=== PATIENT | male | born 1960 | race Caucasian/White ===

== ENCOUNTER 2019-02-25 21:30 | Observation (INO) | payer BC, OTHER ==
--- NOTE | 2019-02-25 22:07 | XR ---
EXAMINATION TYPE: XR shoulder complete LT DATE OF EXAM: 02/25/2019 COMPARISON: NONE HISTORY: Pain TECHNIQUE: 3 views FINDINGS: There is anterior dislocation of the glenohumeral joint. I see no definite fracture line. T he scapula is intact. IMPRESSION: Anterior dislocation of the shoulder joint. No fracture seen.
[2019-02-25] MEDS ORDERED: PROPOFOL 10 MG/ML 20 ML VIAL IV ONE (22:32)
[2019-02-25] MEDS ORDERED: SODIUM CHLORIDE 0.9% 1,000 ML IV STA (22:32)
--- NOTE | 2019-02-25 22:41 | ED ---
Upper Extremity HPI - General Chief Complaint: Extremity Injury, Upper Stated Complaint: Dislocated shoulder Time Seen by Provider: 02/25/19 22:18 Source: patient, RN notes reviewed, old records reviewed Mode of arrival: wheelchair Limitations: no limitations - History of Present Illness Initial Comments: This is a 5-year-old male here for evaluation of left shoulder injury. Patient was playing hockey with friends and oculi fell landing on his left shoulder complaining of left shoulder pain. History of rotator cuff surgery on his right shoulder and only her left lower pain today. Patient denies any injury from the fall. Denying any other significant injury MD Complaint: Injury to:: left, shoulder -: hour(s) Other Extremity Injury: Shoulder: Left Other Injuries: none Handedness: right Severity scale (1-10): 7 Improves With: none Worsens With: none Context: fall, direct blow Associated Symptoms: denies other symptoms - Related Data Home Medications Medication Instructions Recorded Confirmed Multivitamins, Thera [Multivitamin 1 tab PO DAILY 02/26/19 02/26/19 (formulary)] [place]-3 Fatty Acids/Fish Oil [Fish 1 cap PO DAILY 02/26/19 02/26/19 Oil 1,000 mg Softgel] Previous Rx's Medication Instructions Recorded HYDROcodone/APAP 5-325MG [[place] 1 tab PO Q4HR PRN #42 tab 02/26/19 5-325] Allergies Allergy/AdvReac Type Severity Reaction Status Date / Time No Known Allergies Allergy Verified 02/26/19 08:22 Review of Systems ROS Statement: Those systems with pertinent positive or pertinent negative responses have been documented in the HPI. ROS Other: All systems not noted in ROS Statement are negative. Past Medical History Past Medical History: No Reported History History of Any Multi-Drug Resistant Organisms: None Reported Past Surgical History: Orthopedic Surgery Additional Past Surgical History / Comment(s): rt shoulder Past Psychological History: No Psychological Hx Reported Smoking Status: Never smoker Past Alcohol Use History: Occasional Past Drug Use History: None Reported - Past Family History Brother(s) Family Medical History: Cancer General Exam - General Exam Comments Initial Comments: Left shoulder deformity Limitations: no limitations General appearance: alert, in no apparent distress Head exam: Present: atraumatic, normocephalic, normal inspection Eye exam: Present: normal appearance, PERRL, EOMI. Absent: scleral icterus, conjunctival injection, periorbital swelling ENT exam: Present: normal exam, mucous membranes moist Neck exam: Present: normal inspection. Absent: tenderness, meningismus, lymphadenopathy Respiratory exam: Present: normal lung sounds bilaterally. Absent: respiratory distress, wheezes, rales, rhonchi, stridor Cardiovascular Exam: Present: regular rate, normal rhythm, normal heart sounds. Absent: systolic murmur, diastolic murmur, rubs, gallop, clicks GI/Abdominal exam: Present: soft, normal bowel sounds. Absent: distended, tenderness, guarding, rebound, rigid Extremities exam: Present: normal inspection, full ROM, normal capillary refill. Absent: tenderness, pedal edema, joint swelling, calf tenderness Back exam: Present: normal inspection Neurological exam: Present: alert, oriented X3, CN II-XII intact Psychiatric exam: Present: normal affect, normal mood Skin exam: Present: warm, dry, intact, normal color. Absent: rash Course Vital Signs 02/25/19 02/25/19 02/25/19 21:41 23:39 23:45 Temperature 97.8 F Pulse Rate 84 83 87 Pulse Rate [ [employer] ] Pulse Rate [ Left Radial] Respiratory 22 18 18 Rate Blood Pressure 124/77 152/90 145/82 Blood Pressure [Right Arm] O2 Sat by Pulse 98 100 100 Oximetry 02/25/19 02/25/19 02/25/19 23:49 23:53 23:55 Temperature Pulse Rate 89 92 84 Pulse Rate [ [employer] ] Pulse Rate [ Left Radial] Respiratory 17 17 17 Rate Blood Pressure 143/84 143/84 124/77 Blood Pressure [Right Arm] O2 Sat by Pulse 100 99 99 Oximetry 02/25/19 02/26/19 02/26/19 23:59 00:04 00:09 Temperature Pulse Rate 92 76 78 Pulse Rate [ [employer] ] Pulse Rate [ Left Radial] Respiratory 18 17 18 Rate Blood Pressure 124/77 120/72 111/79 Blood Pressure [Right Arm] O2 Sat by Pulse 97 98 97 Oximetry 02/26/19 02/26/19 02/26/19 00:11 00:15 00:20 Temperature Pulse Rate 84 80 74 Pulse Rate [ [employer] ] Pulse Rate [ Left Radial] Respiratory 18 18 18 Rate Blood Pressure 139/103 133/7 142/74 Blood Pressure [Right Arm] O2 Sat by Pulse 98 99 100 Oximetry 02/26/19 02/26/19 02/26/19 00:25 00:28 00:45 Temperature 98.2 F Pulse Rate 73 73 80 Pulse Rate [ [employer] ] Pulse Rate [ Left Radial] Respiratory 18 18 17 Rate Blood Pressure 136/81 139/70 144/85 Blood Pressure [Right Arm] O2 Sat by Pulse 100 100 100 Oximetry 02/26/19 02/26/19 02/26/19 01:00 01:15 01:30 Temperature Pulse Rate 77 78 79 Pulse Rate [ [employer] ] Pulse Rate [ Left Radial] Respiratory 17 16 18 Rate Blood Pressure 137/79 133/88 147/89 Blood Pressure [Right Arm] O2 Sat by Pulse 99 100 98 Oximetry 02/26/19 02/26/19 02/26/19 02:00 03:00 04:00 Temperature Pulse Rate 78 77 76 Pulse Rate [ [employer] ] Pulse Rate [ Left Radial] Respiratory 17 16 17 Rate Blood Pressure 137/81 142/84 136/83 Blood Pressure [Right Arm] O2 Sat by Pulse 98 99 99 Oximetry 02/26/19 02/26/19 02/26/19 06:56 06:59 13:25 Temperature 99.3 F 99.1 F Pulse Rate 80 Pulse Rate [ 78 71 [employer] ] Pulse Rate [ 71 Left Radial] Respiratory 18 18 16 Rate Blood Pressure 146/84 Blood Pressure 138/86 138/77 [Right Arm] O2 Sat by Pulse 99 99 100 Oximetry 02/26/19 13:39 Temperature 97.9 F Pulse Rate Pulse Rate [ 78 [employer] ] Pulse Rate [ Left Radial] Respiratory 16 Rate Blood Pressure Blood Pressure 149/81 [Right Arm] O2 Sat by Pulse 99 Oximetry Procedures - Orthopedic Joint Reduction Joint #1 Consent Obtained: verbal consent Side: left Joint Reduction Location: shoulder Analgesia: procedural sedation Shoulder Technique Used (if applicable): traction/counter-traction, external rotation Post-Reduction Neuro Exam: intact Post-Reduction Vascular Exam: intact Post Reduction X-Ray Obtained: Yes Post Reduction X-Ray Results: not reduced Splint Applied: Yes Patient Tolerated Procedure: well - Procedural Sedation Procedural Sedation Start Time: 23:00 Procedural Sedation Stop Time: 23:55 Indications: fracture/dislocation reduction ASA Class: I Mallampati Airway Score: 1 Preparation: cardiac surgeon applied, pulse oximeter, capnometry used IV Propofol Dose (mgs): 400 Complications: none Interventions: oxygen applied Patient Tolerated Procedure: well Medical Decision Making - Medical Decision Making 59 male to the ER for evaluation regards to left shoulder dislocation. Patient requesting orthopedic reduction of left shoulder dislocation. Admitted to orthopedics for evaluation and treatment - Lab Data Result diagrams: 02/26/19 00:58 02/26/19 00:58 - Radiology Data Radiology results: report reviewed (X-ray left shoulder is positive for significant anterior left shoulder dislocation, CT left shoulder shows the same), image reviewed Disposition Clinical Impression: Dislocation of shoulder region, Dislocation of left shoulder joint Disposition: ADMITTED IP TO THIS HOSP Condition: Good Is patient prescribed a controlled substance at d/c from ED?: No
[2019-02-25] MEDS ORDERED: PROPOFOL 10 MG/ML 20 ML VIAL IV STA (23:52)
[2019-02-26] MEDS ORDERED: PROPOFOL 10 MG/ML 20 ML VIAL IV ONE ×2 (00:02→14:00)
[2019-02-26] MEDS ORDERED: SODIUM CHLORIDE 0.9% 1,000 ML IV ONE (00:30)
[2019-02-26] MEDS ORDERED: SODIUM CHLORIDE 0.9% 1,000 ML IV STA ×2 (00:31)
[2019-02-26] MEDS ORDERED: MORPHINE SULFATE 4 MG/ML SYRINGE IV STA (00:31)
[2019-02-26] MEDS ORDERED: SODIUM CHLORIDE 0.9% 500 ML 500 ML IV STA (00:31)
--- NOTE | 2019-02-26 00:52 | XR ---
EXAMINATION TYPE: XR shoulder limited LT DATE OF EXAM: 02/26/2019 COMPARISON: NONE HISTORY: Shoulder reduction TECHNIQUE: 2 views FINDINGS: There is anterior dislocation of the glenohumeral joint. I see no fracture. IMPRESSION: Persistent anterior dislocation
--- NOTE | 2019-02-26 00:53 | XR ---
EXAMINATION TYPE: XR chest 1V DATE OF EXAM: 02/26/2019 COMPARISON: NONE HISTORY: Weakness There is no heart failure nor confluent pneumonic infiltrate. There are chest leads. Costophrenic ang les are clear. There is anterior dislocation of the left shoulder joint. IMPRESSION: No active cardiopulmonary disease.
[2019-02-26 01:07] LABS: Basophils # (A) 0.1 k/uL (0-0.2); Basophils % (A) 0 %; Eosinophils # (A) 0.2 k/uL (0-0.7); Eosinophils % (A) 1 %; HCT 42.4 % (39.0-53.0); HGB 14.4 gm/dL (13.0-17.5); Lymphocytes # (A) 0.8 k/uL (1.0-4.8); Lymphocytes % (A) 5 %; MCH 31.3 pg (25.0-35.0); MCHC 33.9 g/dL (31.0-37.0); MCV 92.3 fL (80.0-100.0); Monocytes # (A) 0.5 k/uL (0-1.0); Monocytes % (A) 3 %; Neutrophils % (A) 89 %; Platelet Count 225 k/uL (150-450); RBC 4.59 m/uL (4.30-5.90); RDW 12.2 % (11.5-15.5); WBC 14.6 k/uL (3.8-10.6)
[2019-02-26 01:22] LABS: ALT 22 U/L (4-49); AST 39 U/L (17-59); African American GFR (CKD) >90 (>60 ml/min/1.73 sqM); Albumin 4.6 g/dL (3.5-5.0); Alkaline Phosphatase 91 U/L (38-126); Anion Gap 8 mmol/L; Blood Urea Nitrogen 20 mg/dL (9-20); Calcium 9.2 mg/dL (8.4-10.2); Carbon Dioxide 22 mmol/L (22-30); Chloride 110 mmol/L (98-107); Glucose 105 mg/dL (74-99); Non-African American GFR(CKD) 82 (>60 ml/min/1.73 sqM); Phosphorus 2.7 mg/dL (2.5-4.5); Sodium 140 mmol/L (137-145); Total Bilirubin 1.1 mg/dL (0.2-1.3); Total Protein 7.5 g/dL (6.3-8.2)
[2019-02-26 01:25] LABS: Potassium 5.4 mmol/L (3.5-5.1)
[2019-02-26 01:45] LABS: Prothrombin Time 10.3 sec (9.0-12.0)
[2019-02-26 02:04] LABS: Partial Thromboplastin Time 18.9 sec (22.0-30.0)
--- NOTE | 2019-02-26 02:34 | CT ---
EXAMINATION TYPE: CT shoulder LT wo con DATE OF EXAM: 02/26/2019 COMPARISON: None HISTORY: Pt has dislocated left shoulder with failed reduction CT DLP: 753.4 mGycm Automated exposure control for dose reduction was used. Multiple axial sections were obtained from the top of the shoulder to the bottom of the scapula witho ut contrast. FINDINGS: The scapula is intact. Proximal humerus is intact. There is anterior dislocation of the humeral head. There is low attenuation apparent fluid in the glenoid fossa. The clavicle is intact. I see no focal bone destruction. There is small notch deformity on the posterior aspect of the humeral head and the anterior glenoid labrum is impaled in the notch. The left upper ribs are intact. There is mild subpl eural reticular density in the left lung probably due to some pulmonary fibrosis. IMPRESSION: Anterior dislocation of the humeral head with humeral head impaled along the anterior glenoid labrum. No fracture seen.
[2019-02-26] MEDS: MORPHINE SULFATE 4 MG/ML SYRINGE IVP PRN ×2 (08:16→12:03)
[2019-02-26] MEDS ORDERED: DIAZEPAM 5 MG/ML 2 ML INJ IVP PRN (08:52)
[2019-02-26] MEDS ORDERED: HYDROmorphone 0.5 MG/0.5 ML SYRINGE IVP PRN (08:53)
--- NOTE | 2019-02-26 10:18 | P.HPOR ---
History of Present Illness H&P Date: 02/26/19 Chief Complaint: Left shoulder dislocation Patient is pleasant 59-year-old male seen at bedside in the emergency department this morning. He was brought to the emergency department last evening after suffering a fall while playing ice hockey. He fell on his left shoulder re sulting in pain and deformity. X-rays taken in the emergency department showed a left anterior shoulder dislocation. An attempt at reduction was performed by the emergency department physician which was unsuccessful. He continues to have pain at the left shoulder with range of motion as expected. He has been in a sling. He denies numbness or tingling down the left upper extremity. He has no elbow, wrist or other musculoskeletal complaints. He denies fever, chills, chest pain or shortness of breath. Review of Systems All systems: negative Constitutional: Denies chills, Denies fever Eyes: denies blurred vision, denies pain Ears, nose, mouth and throat: Denies headache, Denies sore throat Cardiovascular: Denies chest pain, Denies shortness of breath Respiratory: Denies cough Gastrointestinal: Denies abdominal pain, Denies diarrhea, Denies nausea, Denies vomiting Musculoskeletal: Denies myalgias Integumentary: Denies pruritus, Denies rash Neurological: Denies numbness, Denies weakness Psychiatric: Denies anxiety, Denies depression Endocrine: Denies fatigue, Denies weight change Past Medical History Past Medical History: No Reported History History of Any Multi-Drug Resistant Organisms: None Reported Past Surgical History: Orthopedic Surgery Additional Past Surgical History / Comment(s): rt shoulder Past Anesthesia/Blood Transfusion Reactions: No Reported Reaction Past Psychological History: No Psychological Hx Reported Smoking Status: Never smoker Past Alcohol Use History: Occasional Past Drug Use History: None Reported - Past Family History Brother(s) Family Medical History: Cancer Medications and Allergies Home Medications Medication Instructions Recorded Confirmed Type Multivitamins, Thera [Multivitamin 1 tab PO DAILY 02/26/19 02/26/19 History (formulary)] [place]-3 Fatty Acids/Fish Oil [Fish 1 cap PO DAILY 02/26/19 02/26/19 History Oil 1,000 mg Softgel] Allergies Allergy/AdvReac Type Severity Reaction Status Date / Time No Known Allergies Allergy Verified 02/26/19 08:22 Physical Examination Inspection of the left shoulder shows deformity consistent with anterior dislocation. There are no wounds or lacerations. There is mild swelling about the left shoulder. Range of motion was not tested due to the dislocation. He has painless range of motion at the elbow, wrist and hand. Neurovascular status is grossly intact throughout the left upper extremity with motor and sensation. 2+ radial pulses present and less than 2 second capillary refill is present. Results X-rays and CAT scan left shoulder show an anterior glenohumeral dislocation without fracture. - Labs Labs: Abnormal Lab Results - Last 24 Hours (Table) 02/26/19 02/26/19 02/26/19 Range/Units 00:58 00:58 00:58 WBC 14.6 H (3.8-10.6) k/uL Neutrophils # 13.0 H (1.3-7.7) k/uL Lymphocytes # 0.8 L (1.0-4.8) k/uL APTT 18.9 L (22.0-30.0) sec Potassium 5.4 H (3.5-5.1) mmol/L Chloride 110 H (98-107) mmol/L Glucose 105 H (74-99) mg/dL H & H 02/26/19 Range/Units 00:58 Hgb 14.4 (13.0-17.5) gm/dL Hct 42.4 (39.0-53.0) % Coagulation 02/26/19 Range/Units 00:58 INR 1.0 (<1.2) Result Diagrams: 02/26/19 00:58 02/26/19 00:58 Assessment and Plan (1) Dislocation of left shoulder joint Narrative/Plan: The patient has been reviewed with Dr. Villafuerte. Plan is to take him to the operating room today and utilizing sedation perform a reduction of the left shoulder dislocation. He has been nothing by mouth. The procedure and consent have been ordered. The possible risks, benefits, and complications of the procedure have been explained. Patient desires to proceed. He'll be placed in a sling afterwards and discharged to home. Current Visit: Yes Status: Acute Priority: Medium Code(s): S43.005A - UNSPECIFIED DISLOCATION OF LEFT SHOULDER JOINT, INIT ENCNTR SNOMED Code(s): 200744217 Time with Patient: Less than 30
[2019-02-26 13:42] VITALS: TEMP 97.9
[2019-02-26] MEDS ORDERED: IV FLUID CONTINUATION 1,000 ML IV ONE (13:44)
[2019-02-26] MEDS ORDERED: fentaNYL (PF) 50 MCG/ML 2 ML AMP ONE (14:00)
[2019-02-26] MEDS ORDERED: LIDOCAINE 1% INJ 10MG/ML (20 ML MDV) ONE (14:00)
[2019-02-26] MEDS ORDERED: MIDAZOLAM 2 MG/2 ML VIAL ONE (14:00)
--- NOTE | 2019-02-26 14:18 | P.DS ---
Providers Date of admission: 02/26/19 00:30 Expected date of discharge: 02/26/19 Attending physician: Robb Dixon Primary care physician: Marco A Benavides - Discharge Diagnosis(es) (1) Dislocation of left shoulder joint Patient was admitted to the OR on 02/26/2019 to undergo a closed reduction of left anterior shoulder dislocation under sedation. . He underwent the above procedure which he tolerated well without complication. He was admitted to the ED on 02/25/2019 after a fall playing ice hockey resulted in a left shoulder anterior dislocation. An attempt was made at reduction in the ED which was unsuccessful. He desired to proceed with elective procedure after given informed consent Postoperative hospital course has remained without complication. On day of discharge he is afebrile, vital signs stable, labs within acceptable ranges, tolerating by mouth meds and diet, voiding without difficulty, positive flatus, denies abdominal pain or calf pain, pain is controlled on oral pain medication and has no new complaints. Wound is benign, neurovascular status is intact, calf is soft and nontender, abdomen soft and nontender. Review of systems is negative for numbness, tingling, fever, chills, chest pain, shortness of breath, nausea, vomiting, dizziness, headaches, slurred speech or other. Current Visit: Yes Status: Acute Priority: Medium Procedures: Reduction of left shoulder dislocation Patient Condition at Discharge: Good Plan - Discharge Summary Discharge Rx Participant: No New Discharge Prescriptions: New HYDROcodone/APAP 5-325MG [[place] 5-325] 1 tab PO Q4HR PRN #42 tab PRN Reason: Pain No Action Multivitamins, Thera [Multivitamin (formulary)] 1 tab PO DAILY [place]-3 Fatty Acids/Fish Oil [Fish Oil 1,000 mg Softgel] 1 cap PO DAILY Discharge Medication List HYDROcodone/APAP 5-325MG [[place] 5-325] 1 tab PO Q4HR PRN #42 tab 02/26/19 [Rx] Multivitamins, Thera [Multivitamin (formulary)] 1 tab PO DAILY 02/26/19 [History] [place]-3 Fatty Acids/Fish Oil [Fish Oil 1,000 mg Softgel] 1 cap PO DAILY 02/26/19 [History] Follow up Appointment(s)/Referral(s): Marco A Benavides MD [Primary Care Provider] - 1-2 days Jovanni Villafuerte MD [STAFF PHYSICIAN] - 1 Week Activity/Diet/Wound Care/Special Instructions: maintain sling no weightbearing left upper extremity take meds as directed f/u with Dr. Villafuerte, or Brandt Rios PA-C in office Discharge Disposition: HOME SELF-CARE
--- NOTE | 2019-02-26 14:27 | XR ---
EXAMINATION TYPE: XR shoulder limited LT DATE OF EXAM: 02/26/2019 COMPARISON: NONE HISTORY: Reduction TECHNIQUE: Three views are submitted. FINDINGS: The osseous structures are intact. There is no acute fracture or dislocation. Mild arthropathy AC saeid int. Left basilar consolidation and small effusion. IMPRESSION: 1. Post reduction in near-anatomic alignment. 2. Left lower lobe infiltrate and small effusion.
[2019-02-26] MEDS ORDERED: HYDROmorphone 0.5 MG/0.5 ML SYRINGE IVP ONE (14:35)
[2019-02-26 15:04] VITALS: BP 145/84; RESP 18
[2019-02-26 15:29] VITALS: PULSE 76
--- NOTE | 2019-02-27 09:02 | PCN ---
PROCEDURE NOTE DATE OF PROCEDURE: 02/26/2019 PREPROCEDURE DIAGNOSIS: Left shoulder anterior inferior dislocation. POSTPROCEDURE DIAGNOSIS: Left shoulder anterior inferior dislocation. PROCEDURE: Closed reduction left shoulder anterior inferior dislocation. SURGEON: Jovanni Villafuerte MD. CRIB CLERK: Brandt HERNANDEZ. ANESTHESIA: Conscious sedation. COMPLICATIONS: None apparent. DISPOSITION: Postanesthesia care unit. INDICATIONS: Raimundo is a very pleasant 59-year-old male. He dislocated his left shoulder in a hockey game last night. The emergency room physician had approximately 3 separate attempts at relocating Raimundo's shoulder in the emergency room last night. It was unsuccessful. A CT scan revealed an anterior dislocation with no evidence of fracture. The risks of the reduction were discussed with Raimundo in detail. These risks include, but are not limited to risk of failure to reduce the dislocation, possibility for a fracture of the humeral head with relocation. All of Raimundo's were answered to his satisfaction. Appropriate informed consent was obtained. DESCRIPTION OF THE PROCEDURE: The patient identified in the recovery room. The procedural site was noted by both the patient and myself. He was then administered conscious sedation per the anesthesia department without apparent complication. With traction and countertraction technique, I was able to fairly easily reduce the shoulder back into the glenohumeral joint. This was confirmed with a post procedure x- ray. The patient's left upper extremity was then placed into a standard sling. Raimundo tolerated the procedure without apparent complication. He was discharged home from the recovery room in a sling. I will follow him up in the office in a week or 2. MMODL / IJN: [id number] /
== END 2019-02-26 15:30 | disposition home or self-care (01) ==
LOC: EC 21:30 → 4SSUR 02-26 00:30 → 5NMEDONC 02-26 14:19
PROVIDERS: ADMIT Orthopaedic Surgery; ATTEND Orthopaedic Surgery
DX: S43.015A Anterior dislocation of left humerus, initial encounter (principal); W00.0XXA Fall on same level due to ice and snow, initial encounter; Y93.22 Activity, ice hockey; Z79.899 Other long term (current) drug therapy
CPT/HCPCS: 23650 ×2; 96376; 96374; 99285; 99152; 99153; 23700; 80053; 83735; 84100; 85025; 85610; 85730; 73030; 73020; 71045; 73200; G0378; J2250; J2270; J2001; J3010; J2704 ×2; J1170

== ENCOUNTER → 2020-01-23 | Outpatient (CLI) | payer BC | END | disposition home or self-care (01) | LOC: LABWHC1 12:43 | PROVIDERS: ATTEND Ophthalmology | DX: H44.132 Sympathetic uveitis, left eye (principal) | CPT/HCPCS: 36415; 82164; 86480; 86592; 86618; 86780 ==